=== PATIENT | female | born 1935 | race Caucasian/White ===

== ENCOUNTER 2016-09-16 11:40 | Emergency (ER) | payer OTHER ==
--- NOTE | 2016-09-16 12:08 | ED HEADACHE COMPLAINT ---
History of Present Illness General Chief Complaint: Headache Stated Complaint: HEAD PAIN X 5 DYS Source: patient, family, old records Exam Limitations: no limitations Vital Signs & Intake/Output Vital Signs & Intake/Output ED Intake and Output 09/17 0000 09/16 1200 Intake Total Output Total 40 Balance -40 Output, Urine 40 Allergies Coded Allergies: No Known Allergies (09/16/16) Reconcile Medications Cyclobenzaprine HCl 5 MG TABLET 1 TAB PO TIDPRN PRN pain Tramadol HCl 50 MG TABLET 1 TAB PO BIDP PRN pain Triage Note: PT TO ED WITH POSTERIOR HEAD PAIN AND NECK PAIN X5 DAYS. HURTS TO MOVE HEAD AROUND. Triage Nurses Notes Reviewed? yes Onset: Gradual Duration: X 1 YEAR Timing: recent history Quality/Severity: mild, achy Severity Numbers: 5 Head Injury Location: occipital No Modifying Factors: none Associated Symptoms: NECK PAIN HPI: 80 Year old female with history of Parkinson's presents with family for evaluation complaining of a one year history of a posterior headache radiating into her neck. Patient states she's been seen by her primary care as well as neurologist Dr. Guzmán for which she had an MRI of her head performed over a year ago which was unremarkable. She's been taking Tylenol for her headache with only mild improvement. No recent fall or trauma. She denies any difficulty with range of motion of her neck. No fevers or chills. No vision changes tonight his dizziness chest pain shortness of breath. No change in her mental status per family (LONG CULP) Past History Travel History Traveled to [place] past 21 day No Medical History Any Pertinent Medical History? see below for history Neurological: Parkinson's disease Cardiovascular: hypertension, STENT Pneumonia Vaccine: 12/13/09 Influenza Vaccine: 12/30/11 Surgical History Surgical History: non-contributory Psychosocial History Who do you live with Spouse Services at Home None What is your primary language Jamaican Tobacco Use: Never used Family History Hx Contributory? No (LONG CULP) Review of Systems Review of Systems Constitutional: Reports: see HPI. All Other Systems: Reviewed and Negative Comments Review of systems: See HPI, All other systems negative. Constitutional, no chills no fever, no malaise HEENT: No visual changes no sore throat no congestion Cardiovascular: No chest pain , no palpitation , Skin: no rashes, no change in skin Respiratory: No dyspnea no cough no sputum GI: No nausea no vomiting, Muscle skeletal: No joint pain,, no back pain, no neck pain, Neurologic: No numbness no confusion, headache Psych: No stress Heme/endocrine: No bruising Immunology: No lymphadenopathy (LONG CULP) Physical Exam Physical Exam General Appearance: well developed/nourished, no apparent distress, alert Cranial Nerves: normal hearing, normal speech, PERRL Comments: Well-developed well-nourished person in no acute distress HEENT: Normal EENT exam; PERRL, EOMI, no nystagmus. HEAD is atraumatic. moist mucous membranes. Tenderness on palpation of the right posterior scalp, no tenderness over the temporal arteries Neck: Supple, no midline tenderness there is right-sided paracervical muscle tenderness to palpation no lymphadenopathy, normal range of motion without pain or tenderness Back: Nontender, no CVA tenderness. Full range of motion Cardiovascular: Regular rate and rhythms no murmurs rubs Respiratory: Chest nontender.There were no bony deformities, no asymmetry. No respiratory distress. Patient speaking in full complete sentences. Breath sounds clear to auscultation bilaterally: NO W/R/R Abdomen: Soft, nontender Extremity: No edema, full range of motion of extremities, normal and equal pulses bilaterally, 5 out of 5 strength noted to bilateral upper and lower extremities Neuro: Alert oriented x3, motor sensory normal, cranial nerves II through XII grossly intact. There were no obvious focal neurologic abnormalities. Skin: No appreciable rash on exposed skin, skin is warm and dry. Psych: Mood and affect is normal, memory and judgment is normal. Core Measures Severe Sepsis Present: No Septic Shock Present: No (LONG CULP) Progress Differential Diagnosis: cluster GAR, encephalitis, IC mass/tumor, intracranial Hem., meningitis, migraine GAR, musculoskeletal pain, sinusitis, tension GRA, temporal arteritis Plan of Care: Orders Procedure Date/time Status CBC WITHOUT DIFFERENTIAL 09/16 120 Complete BASIC METABOLIC PANEL 09/16 1206 Complete Laboratory Tests 09/16/16 1225: Anion Gap 9, Estimated GFR > 60, BUN/Creatinine Ratio 27.1 H, Glucose 105 H, Calcium 10.0, CBC w Diff NO MAN DIFF REQ, RBC 3.83 L, MCV 91.5, MCH 31.4 H, RDW 12.6, MPV 8.3, Gran % 73.2, Lymphocytes % 16.2 L, Monocytes % 8.0, Eosinophils % 2.1, Basophils % 0.5, Absolute Granulocytes 5.7, Absolute Lymphocytes 1.3, Absolute Monocytes 0.6, Absolute Eosinophils 0.2, Absolute Basophils 0, PUBS MCHC 34.4 Patient medicated with tramadol Flexeril CAT scan ordered case discussed with Dr. Ramos agrees with plan I discussed with the patient at length all of their results. I had an extensive conversation regarding need for close follow up with their primary care physician this week as well as return precautions. I answered all of their questions, they feel comfortable with the plan and follow-up care. I discussed with the patient/family the medications that they will receive. I gave them signs and symptoms that could indicate an adverse reaction. I have advised them to limit their activities until they can see how they respond to the medication. (LONG CULP) Diagnostic Imaging: Viewed by Me: CT Scan. Discussed w/RAD: CT Scan. Radiology Impression: PATIENT: MAYCOL FAYE PRESENT AGE: 80 PATIENT ACCOUNT NO: [id number] : 34 LOCATION: [facility] ORDERING PHYSICIAN: LONG CASTILLO SERVICE DATE: 09/16/16 EXAM TYPE: CAT - CT HEAD WO IV CONTRAST EXAMINATION: CT HEAD WITHOUT CONTRAST CLINICAL INFORMATION: Headache COMPARISON: None TECHNIQUE: Contiguous axial imaging was performed from the skull base to vertex without intravenous administration of contrast. FINDINGS: Atrophy. No midline shift. No mass effect. There is no hemorrhage. Basal cisterns appear patent. The posterior fossa risk grossly within normal limits. There is no extra-axial collection. Vascular calcifications are noted. IMPRESSION: Negative acute noncontrast CT of the brain. Atrophy is present. White matter ischemic changes. DICTATED BY: ADELE FOSTER MD DATE/TIME DICTATED:09/16/161346 COMPUTER PROGRAMMING PROFESSOR:SHANNAN DATE/ TIME TRANSCRIBED:09/16/161346 CONFIDENTIAL, DO NOT COPY WITHOUT APPROPRIATE AUTHORIZATION. <Electronically signed in Other Vendor System> SIGNED BY: ADELE FOSTER MD 09/16/16 1200 (LONG CULP) Departure Departure Time of Disposition: 1348 Disposition: HOME OR SELF CARE Condition: Stable Clinical Impression Primary Impression: Tension headache Referrals: AROLDO GRIFFITH MD (PCP/Family) Additional Instructions: FOLLOW UP WITH YOUR PMD AND NEUROLOGIST DR GUZMÁN. TRAMADOL AND FLEXERIL DIRECTED. THIS MAY MAKE YOU DROWSY. THESE WERE SENT TO YOUR [facility]. RETURN WITH ANY CONCERNS Departure Forms: Customer Survey General Discharge Information Prescriptions: Current Visit Scripts Cyclobenzaprine HCl 1 TAB PO TIDPRN PRN pain #15 TAB Tramadol HCl 1 TAB PO BIDP PRN pain #12 TAB (VERONIQUE CASTILLO,LONG) PA/STOP ATTACHER Co-Sign Statement Statement: ED Attending supervision documentation- [X] I saw and evaluated the patient. I have also reviewed all the pertinent lab results and diagnostic results. I agree with the findings and the plan of care as documented in the PA's/STOP ATTACHER's documentation. [X] I have reviewed the ED Record and agree with the PA's/STOP ATTACHER's documentation. [] Additions or exceptions (if any) to the PAs/STOP ATTACHER's note and plan are summarized below: [] (MALIHA GUEVARA,CINDI Al)
[2016-09-16 12:33] LABS: ABSOLUTE BASOPHIL COUNT 0 /CUMM (0.0-0.2); ABSOLUTE EOSINOPHIL COUNT 0.2 /CUMM (0.0-0.7); ABSOLUTE GRANULOCYTE CT 5.7 /CUMM (1.4-6.5); ABSOLUTE LYMPH COUNT 1.3 /CUMM (1.2-3.4); ABSOLUTE MONOCYTE COUNT 0.6 /CUMM (0.10-0.60); BASOPHIL % 0.5 % (0.0-2.0); EOSINOPHIL % 2.1 % (0-5); GRANULOCYTE % 73.2 % (42.2-75.2); HEMATOCRIT 35.1 % (37-47); MEAN CORPUSCULAR HGB 31.4 PG (27.0-31.0); MEAN CORPUSCULAR HGB CONC 34.4 G/DL (33.0-37.0); MEAN CORPUSCULAR VOLUME 91.5 FL (81.0-99.0); MEAN PLATELET VOLUME 8.3 FL (7.4-10.4); PLATELET COUNT 180 /CUMM (130-400); RBC DISTRIBUTION WIDTH 12.6 % (11.5-14.5); RED BLOOD CELL CT 3.83 /CUMM (4.20-5.40); WHITE BLOOD CELL COUNT 7.8 /CUMM (4.8-10.8)
[2016-09-16] MEDS ORDERED: CYCLOBENZAPRINE5 M2 PO (13:51)
[2016-09-16] MEDS ORDERED: TRAMADOL HCL50 M1 PO (13:51)
--- NOTE | 2016-09-16 13:51 | CT SCAN REPORT ---
EXAMINATION: CT HEAD WITHOUT CONTRAST CLINICAL INFORMATION: Headache COMPARISON: None TECHNIQUE: Contiguous axial imaging was performed from the skull base to vertex without intravenous administration of contrast. FINDINGS: Atrophy. No midline shift. No mass effect. There is no hemorrhage. Basal cisterns appear patent. The posterior fossa risk grossly within normal limits. There is no extra-axial collection. Vascular calcifications are noted. IMPRESSION: Negative acute noncontrast CT of the brain. Atrophy is present. White matter ischemic changes.
[2016-09-16 14:10] VITALS: BP 124/74
== END 2016-09-16 14:11 ==
LOC: ERH 11:40
PROVIDERS: Physician Assistant Medical
DX: G44.209 Tension-type headache, unspecified, not intractable (principal)